=== PATIENT | female | born 2005 | race Hispanic/Latino ===

== ENCOUNTER 2023-12-24 03:24 | Emergency (ER) | payer BC, SELFPAY ==
[2023-12-24 03:25] VITALS: BP 111/78; PULSE 99; RESP 16; TEMP 37.1; O2SAT 100; BMI 27.8
--- NOTE | 2023-12-24 04:15 | EDS_ITS ---
HPI History of Present Illness Chief Complaint: Dental Informant: patient Narrative Narrative: Patient is a 18-year-old female with no reported significant past medical history. She states she has noticed some pain in her left jaw for the last 1 to 2 days but starting around 11:00 last night she developed increased swelling. She states there was no trauma and she denies any trouble breathing or swallowing but secondary to the increasing pain and now soft tissue swelling she has concern for infection and therefore comes in for evaluation. PFSH PFSH Medical History no medical history no medical history Home Medications ?Medication ?Instructions ?Recorded ?Last Taken ?Type amoxicillin 875 mg-potassium 1 tab PO BID 10 days #20 tabs 12/24/23 Unknown Rx clavulanate 125 mg tablet oxycodone-acetaminophen 5 mg-325 1 tab PO Q6H PRN pain 3 days #12 12/24/23 Unknown Rx mg tablet (Percocet) tabs Allergy/AdvReac Type Severity Reaction Status Date / Time No Known Allergies Allergy Verified 12/24/23 03:25 Surgical History no surgical history Social History Smoking Status: Current every day smoker tobacco type: e-cigarettes ROS ROS ED Constitutional Constitutional ED: Denies chills or fever(s) ENT ENT ED: Reports other Details: Positive dental pain and facial swelling ; Denies sore throat Cardiovascular Cardiovascular: Denies chest pain Respiratory/Chest Respiratory/Chest: Denies cough or dyspnea Gastrointestinal Gastrointestinal: Denies abdominal pain, diarrhea, nausea or vomiting Genitourinary Genitourinary ED: Denies dysuria Musculoskeletal Musculoskeletal: Denies myalgias or neck pain Integumentary Reports abscess; Denies rash Neurologic Neurologic: Denies headache(s) Hematologic/Lymphatic Hematologic/Lymphatic: Denies easy bleeding or easy bruising Allergic/Immunologic Allergic/Immunologic ED: Denies mouth swelling or tongue swelling EXAM Physical Exam Const Vital Signs: 12/24/23 03:25 12/24/23 04:28 Temperature 98.8 F 98.7 F Temperature Source Oral Pulse Rate 99 92 Respiratory Rate 16 18 Blood Pressure 111/78 140/81 H Blood Pressure Mean 89 100 Pulse Ox 100 100 Positive well nourished and well developed General Appearance ED: well developed; Negative for pallor HEENT Reports moist mucous membranes HEENT Narrative: No tongue or lip swelling no airway edema or compromise Patient has scant dental caries. There is soft tissue swelling in the lower left gingiva consistent with abscess. Patient has external soft tissue swelling at this site as well but no overlying erythema or warmth or lymphangitic streaking. No active drainage noted. No signs of ANUG No signs of infection noted in the posterior pharynx Eyes PERRL and EOMs intact bilaterally General Eye ED: Negative for scleral icterus Neck supple Neck Narrative: No brawny edema in the submental space to suggest Amilcar angina Resp normal respiratory effort and clear to auscultation bilaterally Cardio regular rate and regular rhythm Extremity normal to inspection Neuro oriented x3, CN's II-XII intact bilaterally and no sensory deficits noted Sensorium / Orientation: alert Motor Exam: strength 5/5 throughout Psych mental status grossly normal Skin Skin Narrative: Soft tissue swelling to the left lower jaw/cheek as documented above without external erythema or warmth or streaking General Skin Exam: Negative for jaundice or pallor MDM MDM MDM Narrative Medical decision making narrative: Patient arrived to the ER with stable vitals and had no signs of airway edema or compromise. By physical exam she has a developing dental abscess. There are no signs of infection in the posterior pharynx such as strep throat or peritonsillar abscess she does not have physical exam findings concerning for ANUG or Amilcar angina. Therefore do not feel there is need for imaging or laboratory studies. With the patient's exam showing developing abscess I do feel she would benefit from incision and drainage. Therefore she was given a dental block as documented below and a bedside I&D was performed. Following this she can place on antibiotics for secondary to the infection but is otherwise safe for discharge. Patient was given a left inferior alveolar dental block using 1 mL of 0.5% Marcaine and 1.5 mL of 2% lidocaine with epinephrine. Following injection patient achieved good anesthesia then a #11 blade was used to make a 1 cm incision over top the area of fluctuance in the left gingiva. There was moderate amount of blood and small amount of purulent material expressed. Patient tolerated the procedure well without complication. History & Record Review Discussion w/independent historian: Patient Discharge Plan Triage Chief Complaint: Dental ED Provider: Medardo Dominguez Dx/Rx/DC Orders Clinical Impression: Dental abscess, Dental caries Instructions: Dental Abscess Prescriptions: New amoxicillin-pot clavulanate 875-125 mg tablet 1 tab PO BID 10 Days Qty: 20 0RF oxycodone-acetaminophen [Percocet] 5-325 mg tablet 1 tab PO Q6H PRN (Reason: pain) 3 Days Qty: 12 0RF Primary Care Provider: Care Physician,No Primary Referrals: Care Physician,No Primary [Primary Care Provider] - Activity Restrictions/Additional Instructions: Please follow-up with your dentist for repeat evaluation but if you develop worsening facial swelling difficulty breathing or swallowing or fever despite taking your antibiotics then return to the ER for repeat evaluation. Please continue with salt water gargles 2-3 times a day to help speed healing and take the medication as prescribed to control pain and resolve your infection Print Language: Chinese Disposition Disposition: Home, Self Care Discharge Date/Time: 12/24/23 04:29
[2023-12-24] MEDS: Amox/Clavulanate 875 MG Tablet PO (04:25)
[2023-12-24] MEDS: Lidocaine 2% /Epi 1:100 (20ml) 20 ML VIAL INFILT (04:26)
[2023-12-24 04:28] VITALS: BP 140/81; PULSE 92; RESP 18; TEMP 37.1; O2SAT 100
== END 2023-12-24 04:29 | disposition home or self-care (01) ==
PROVIDERS: Emergency Provider Emergency Medicine; Visit Provider Emergency Medicine
DX: K04.7 Periapical abscess without sinus (principal); K02.9 Dental caries, unspecified; F17.290 Nicotine dependence, other tobacco product, uncomplicated
CPT/HCPCS: 41800; 99282